=== PATIENT | female | born 1980 | race Caucasian/White ===

== ENCOUNTER 2023-07-01 08:00 | Outpatient (CLI) | payer BC | END 2023-07-01 08:01 | disposition home or self-care (01) | LOC: BICMAMMO 08:00 → MERGE 08:00 → BICMAMMO 08:01 | PROVIDERS: ATTEND Obstetrics & Gynecology | DX: Z12.31 Encounter for screening mammogram for malignant neoplasm of breast (principal); Z98.82 Breast implant status; N64.89 Other specified disorders of breast | CPT/HCPCS: 77063; 77067 ==

== ENCOUNTER 2023-07-06 08:07 | Outpatient (CLI) | payer BC | END 2023-07-06 08:08 | disposition home or self-care (01) | LOC: BICMAMMO 08:07 | PROVIDERS: ATTEND Obstetrics & Gynecology | DX: N64.89 Other specified disorders of breast (principal) | CPT/HCPCS: G0279 ==

== ENCOUNTER 2023-07-20 13:28 | Outpatient (CLI) | payer BC | END 2023-07-20 13:29 | disposition home or self-care (01) | LOC: BICMRI 13:28 | PROVIDERS: ATTEND Surgery | DX: R92.8 Other abnormal and inconclusive findings on diagnostic imaging of breast (principal) | CPT/HCPCS: A9577; C8908 ==

== ENCOUNTER → 2025-05-22 | Day surgery (SDC) | payer BC ==
[~2025-05-22] MED LIST: Oxymetazoline HCl 0.05% (30 ML BOT) ONE
== END ==
LOC: SDC 13:56
PROVIDERS: ATTEND Surgery
PROC: 4A0B8BZ Measurement of Gastrointestinal Pressure, Via Natural or Artificial Opening Endoscopic (ICD-10-PCS; principal; 2025-05-22)
DX: K22.70 Barrett's esophagus without dysplasia (principal); K20.90 Esophagitis, unspecified without bleeding; K21.9 Gastro-esophageal reflux disease without esophagitis; Z88.8 Allergy status to other drugs, medicaments and biological substances; Z91.012 Allergy to eggs
CPT/HCPCS: 91010

== ENCOUNTER 2025-05-26 08:28 | Outpatient (CLI) | payer BC ==
[2025-05-26] MEDS ORDERED: E-Z-HD 98% W/W 340GM BOT (x-ray ONLY) ONE (08:49)
[2025-05-26] MEDS ORDERED: Barium Sulfate 96% 176 GM BOT (xray ONLY) ONE (08:49)
== END 2025-05-26 08:29 | disposition home or self-care (01) ==
LOC: RAD 08:28
PROVIDERS: ATTEND Surgery
DX: K22.70 Barrett's esophagus without dysplasia (principal); K20.90 Esophagitis, unspecified without bleeding; K21.9 Gastro-esophageal reflux disease without esophagitis; K44.9 Diaphragmatic hernia without obstruction or gangrene; Z98.890 Other specified postprocedural states
CPT/HCPCS: 74220